=== PATIENT | male | born 1960 | race Two or more races ===

== ENCOUNTER 2025-02-10 10:45 | Day surgery (SDC) | payer MEDICARE, MEDICAID, SELFPAY ==
--- NOTE | 2025-02-09 12:13 | EKG_ITS ---
[facility] Test Date: 2025-02-09 Pat Name: ADELITA GABRIEL Department: Room: - Gender: Male Institute Director: INA : 1960 Requested By: Joshua Bucio Order Number: [id number] Reading MD: Joshua Bucio Measurements Intervals [place] Rate: 56 P: 47 [place]: 189 QRS: 26 QRSD: 108 T: 24 QT: 407 QTc: 395 Interpretive Statements SINUS BRADYCARDIA WARNING: DATA QUALITY MAY AFFECT INTERPRETATION No previous ECG available for comparison /[id number].pdf
[2025-02-09 12:22] VITALS: BMI 33.5
[2025-02-09 13:18] LABS: Basophils % (Auto) 0 % (0-2.5); Eosinophils # (Auto) 0.2 Thou/mm3 (0.0-0.5); Eosinophils % (Auto) 2 % (0-10); Hematocrit 46.2 % (41.0-53.0); Hemoglobin 16.4 g/dL (13.5-16.0); Immature Granulocytes % (Auto) 0 % (0-0); Immature Granulocytes Auto 0.03 Thou/mm3 (0.00-0.00); Lymphocytes # (Auto) 2.4 Thou/mm3 (1.0-4.8); Lymphocytes % (Auto) 32 % (10-50); Mean Corpuscular HGB Conc 35.5 g/dl (31.0-37.0); Mean Corpuscular Volume 87 fL (80-100); Monocytes # (Auto) 0.6 Thou/mm3 (0.0-0.8); Monocytes % (Auto) 8 % (0-12); Neutrophils # (Auto) 4.4 Thou/mm3 (1.8-7.7); Neutrophils % (Auto) 57 % (37-80); Nucleated Red Blood Cell % 0 /100 WBC (0); Platelet Count 159 Thou/mm3 (140-440); RDW Standard Deviation 40.2 fL (35.1-43.9); Red Blood Count 5.29 Miln/mm3 (4.50-5.90); White Blood Count 7.6 Thou/mm3 (3.8-10.6)
[2025-02-09 13:25] LABS: Partial Thromboplastin Time 28.1 Seconds (22.0-36.0); Prothrombin Time 10.9 Seconds (9.0-12.2)
--- NOTE | 2025-02-09 13:27 | ESHP_ITS ---
RE: ADELITA GABRIEL : 1960 DATE OF ADMISSION: 02/10/2025 HISTORY OF PRESENT ILLNESS: The patient came to my office on 02/09/2025 for detailed preop history and physical examination. HISTORY OF PRESENTING COMPLAINT: The patient presented to me with a history of pain in the left shoulder. Pain is quite bad. The patient graded intensity of pain to be 8- 9/10. The patient is unable to sleep. Range of motion is severely restricted. PAST MEDICAL HISTORY: The patient has history of high blood pressure and diabetes mellitus. PAST SURGICAL HISTORY: Nil. FAMILY HISTORY AND SOCIAL HISTORY: Noncontributory in this case. However, the patient does admit drinking but no smoking. He is not working. DRUG HISTORY: The patient is on; 1. Carvedilol. 2. Glimepiride. 3. Jardiance. 4. Lisinopril. 5. Metformin. 6. Omeprazole. ALLERGIES: NIL KNOWN. PHYSICAL EXAMINATION: GENERAL: Normal built person. VITAL SIGNS: Pulse is 61 per minute. Blood pressure is 140/76. NECK: Soft. Supple. No masses felt. Trachea is centrally replaced. CARDIOVASCULAR SYSTEM: First and second heart sounds normal. No murmur heard. LUNGS: Bilateral vesicular breath sounds. CHEST: Clear. ABDOMEN: Soft. No masses felt. Bowel sounds present. EXTREMITIES: Left shoulder examination reveals 2+ tenderness at AC joint. Active range of motion is 0 to 80 degrees of forward flexion and 0 to 80 degrees of abduction. Internal rotation is severely restricted. 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 DIAGNOSTIC DATA: MRI scan was obtained, which revealed full-thickness tear of the rotator cuff with retraction. The patient also has DJD of the AC joint. ASSESSMENT AND PLAN: Since the patient is symptomatic and has got torn rotator cuff, therefore, left rotator cuff repair with Mandie procedure was discussed and advised. With the pictures and diagram, it was explained to him in detail. All questions were answered. Risks with anesthesia was explained and that includes, but not limited to reaction to anesthetic agents, cardiac arrest or rarely it might be fatal. Risk with operations including infection, and if that happens, the patient may need further surgical procedure. Other risks include delayed healing, wounds dehiscence, etc. No guarantees given regarding outcomes of the procedure and/or relief of the symptoms. Indeed, physical therapy is extremely important component for a successful outcome of the surgery. The patient is encouraged to do home exercise once I advised him to do so. The patient is also cleared for surgical procedure by Dr. Swanson, the primary care physician. Surgery book for 02/10/2025. Appropriate laboratory work done. DT: 12:33:40 TT: 13:24:00 Ref: [id number] - TID: [id number]
[2025-02-09 13:34] LABS: Alanine Aminotransferase 21 U/L (10-49); Albumin, Serum 4.4 gm/dL (3.4-4.8); Albumin/Globulin Ratio 1.6 (1.2-2.2); Alkaline Phosphatase 105 U/L (46-116); Anion Gap 8 (7-16); Aspartate Amino Transferase 19 U/L (0-34); BUN/Creatinine Ratio 18 Ratio (12-20); Bilirubin,Total 1.1 mg/dL (0.3-1.2); Blood Urea Nitrogen 14 mg/dL (9-23); Calcium 9.6 mg/dL (8.3-10.6); Calcium (Corrected) 9.6 mg/dL (8.5-10.1); Carbon Dioxide 28.7 mMol/L (20.0-31.0); Chloride 104 mMol/L (98-107); Creatinine (Component) 0.8 mg/dL (0.6-1.3); Globulin 2.7 gm/dL (2.3-3.5); Glucose 105 mg/dL (74-106); Osmolality,Calculated 281 (275-295); Potassium 4.2 mMol/L (3.4-5.1); Sodium 141 mMol/L (136-145); Total Protein 7.1 gm/dL (5.7-8.2); eGFR > 60 See Note
[2025-02-10] VITALS (11 sets, daily range): BP systolic 148–185; BP diastolic 89–100; PULSE 56–83; RESP 14–20; TEMP 36.2–36.8; O2SAT 95–100; BMI 32.6
--- NOTE | 2025-02-10 10:52 | SUR.PREOP ---
Patient was changing. Prayed by door a silent prayer.
--- NOTE | 2025-02-10 15:06 | PD.SUROPNT ---
Date of Procedure 02/10/25 Pre Op Diagnosis 1. Left rotator cuff tear 2. Left shoulder impingement syndrome Post Op Diagnosis Same Procedure 1. Excision lateral end of the clavicle 2. Excision coracoacromial ligament 3. Acromioplasty 4. Repair of rotator cuff 5. Manipulation under anesthesia Findings Patient had DJD at AC joint. Beside that patient has a linear tear of the rotator cuff consistent with impingement. Significant Procedure Description The patient was given general endotracheal anesthesia. Once satisfactory anesthesia was achieved patient was put in about 45?? sitting position with sandbag underneath the shoulder blade. The part was thoroughly prepped and draped. A skin incision was made at the AC joint extending proximally towards the neck for a half inches and distally towards the arm for about couple of inches. Deeper dissection was carried out. Bleeding vessels were electrocoagulated as and when encountered. The soft tissue was reflected. Following that AC joint was exposed and AC joint was exposed. The deltoid muscle was reflected from the anterior and lateral aspect of the acromial process. The acromial process showed 2 mm anterior osteophytes and 1 mm lateral osteophytes the osteophytes on the anterior aspect and lateral aspect of the acromial process was excised along with 1 mm each from anterior and lateral aspect. Following that a periosteal elevator was placed underneath the lateral end of the clavicle and lateral 3-4 mm was excised. The coracoacromial ligament was removed. With the help of curved osteotome the undersurface of the Acromial processes was chiseled out. That made more room between the superior surface of the head of the humerus and undersurface of the acromial process. Following that the rotator cuff was inspected. It revealed big oval tear, however most of the fibers were attached to the greater tuberosity. Wound was irrigated with antibiotic solution every 4-5 minutes. The left shoulder was manipulated at this time. Full range of abduction and full flexion was achieved. The rotator cuff tear was repaired with 2-0 Vicryl. 2 drill holes were made on the acromial process and deltoid muscle was stitched back to it. Some reinforcement sutures were placed. The subcutaneous tissue was then closed with the help of 2-0 Vicryl and 3-0 Vicryl in layers. The skin was closed with raymon. After cleaning the wound with hydrogel proximal solution and sterile dressing was applied. Patient was taken to the recovery room in good condition. Estimated blood loss 20 mL. Prognosis in this case is good. Anesthesia GETA and other Pathology / specimen None Estimated Blood Loss 10 Surgeon Joshua Stokes MD Surgical Staff Operation Date: 02/10/25 13:00 Case Staff Anesthesiologist: Anthony Dalton RN First Assistant: Beto Farah
--- NOTE | 2025-02-10 15:22 | SUR.PHASEI ---
1522 Patient arrived to recovery resting comfortably in [facility], drowsy and able to arouse with verbal prompting, breathing unlabored, vital signs stable, denies pain, dressing intact to left shoulder; sutures, adaptic, abd, medipore tape, no bleeding noted, patient has good circulation to left upper extremity; skin color normal for patient, warm to touch and capillary refill is one second to left fingers, lung sounds clear upon auscultation, report received from Elena CASILLAS and Dr. Dalton
--- NOTE | 2025-02-10 17:21 | SUR.PHASEII ---
1721 Patient meets discharge criteria from recovery, awake and alert, breathing unlabored, vital signs stable, denies pain, dressing intact; no bleeding noted, provided arm sling for arm support, patient ate a jello and drinking 7up; tolerating well, denies nausea, patient assisted with dressing into his clothing by this justowriter operator and his son, discharge instructions given with the assistance of the telephone manager system Liseth [id number] to patient and patients son/daughter, with teach-back approach, all receptive of instructions, patients daughter signed discharge instructions. Patient given all his belongings prior to discharge, transported via wheelchair and left in a private vehicle.
== END 2025-02-10 17:21 | disposition home or self-care (01) ==
PROVIDERS: Anesthesiology; PCP Physician Assistant; Referring Provider Orthopaedic Surgery; Visit Provider Orthopaedic Surgery
PROC: (CPT 23412; principal; 2025-02-10 13:00)
DX: M75.102 Unspecified rotator cuff tear or rupture of left shoulder, not specified as traumatic (principal); M75.42 Impingement syndrome of left shoulder; E11.9 Type 2 diabetes mellitus without complications; Z01.810 Encounter for preprocedural cardiovascular examination
CPT/HCPCS: 23412; 23120; 23130; 36415; 80053; 85025; 85610; 85730; 93005; A4217; A4649; J0690; J1100; J1580; J1885; J2250; J2405; J2704; J2795; J3010; J3490

== ENCOUNTER → 2025-05-08 | Outpatient (CLI) | payer MEDICARE, MEDICAID, SELFPAY ==
[2025-05-08 11:28] LABS: Basophils % (Auto) 0 % (0-2.5); Eosinophils # (Auto) 0.3 Thou/mm3 (0.0-0.5); Eosinophils % (Auto) 4 % (0-10); Hematocrit 42.1 % (41.0-53.0); Hemoglobin 14.8 g/dL (13.5-16.0); Immature Granulocytes % (Auto) 1 % (0-0); Immature Granulocytes Auto 0.03 Thou/mm3 (0.00-0.00); Lymphocytes # (Auto) 2.1 Thou/mm3 (1.0-4.8); Lymphocytes % (Auto) 32 % (10-50); Mean Corpuscular HGB Conc 35.2 g/dl (31.0-37.0); Mean Corpuscular Hemoglobin 31.2 pg (25.0-35.0); Mean Corpuscular Volume 89 fL (80-100); Monocytes # (Auto) 0.5 Thou/mm3 (0.0-0.8); Monocytes % (Auto) 8 % (0-12); Neutrophils # (Auto) 3.6 Thou/mm3 (1.8-7.7); Neutrophils % (Auto) 56 % (37-80); Nucleated Red Blood Cell % 0 /100 WBC (0); Platelet Count 166 Thou/mm3 (140-440); RDW Standard Deviation 41.8 fL (35.1-43.9); Red Blood Count 4.75 Miln/mm3 (4.50-5.90); White Blood Count 6.5 Thou/mm3 (3.8-10.6)
[2025-05-08 11:33] LABS: Glucose Estimated Average 160 mg/dL (80-131); Hemoglobin A1C 7.2 % Hgb (4.8-6.0)
[2025-05-08 11:36] LABS: Alanine Aminotransferase 18 U/L (10-49); Albumin/Globulin Ratio 1.9 (1.2-2.2); Alkaline Phosphatase 116 U/L (46-116); Anion Gap 8 (7-16); Aspartate Amino Transferase 19 U/L (0-34); BUN/Creatinine Ratio 19 Ratio (12-20); Bilirubin,Total 0.7 mg/dL (0.3-1.2); Blood Urea Nitrogen 15 mg/dL (9-23); Carbon Dioxide 31.5 mMol/L (20.0-31.0); Chloride 105 mMol/L (98-107); Creatinine (Component) 0.8 mg/dL (0.6-1.3); Globulin 2.1 gm/dL (2.3-3.5); Glucose 116 mg/dL (74-106); Osmolality,Calculated 288 (275-295); Potassium 4.3 mMol/L (3.4-5.1); Sodium 144 mMol/L (136-145); Total Protein 6.1 gm/dL (5.7-8.2); eGFR > 60 See Note
== END | disposition home or self-care (01) ==
LOC: COPL 10:42
PROVIDERS: PCP Physician Assistant; Referring Provider Specialist; Visit Provider Specialist
DX: Z01.812 Encounter for preprocedural laboratory examination (principal); L72.3 Sebaceous cyst
CPT/HCPCS: 36415; 80053; 83036; 85025